=== PATIENT | male | born 2000 | race African-American/Black ===

== ENCOUNTER 2021-04-26 21:31 | Emergency (ER) | payer SELFPAY ==
[2021-04-26 22:13] LABS: Bilirubin Neg (Negative); Blood, Urine 10 (Negative); Clarity Slightly Cloudy (Clear); Glucose, Urine (Dipstick) Normal (Negative); Ketone, Urine 5 mg/dL (Negative); Leukocyte 500 (Negative); Nitrite Negative (Negative); Protein, Urine (Dipstick) 15 mg/dl (Neg-Trace); Specific Gravity, Urine 1.015 (1.002-1.036); Urobilinogen Normal mg/dL (Less than 2)
[2021-04-26 22:22] LABS: RBC/HPF 0-3 HPF (0-3); Squamous Epithelial 0-3 HPF (0-3); WBC/HPF Greater Than 50 HPF (0-3)
[2021-04-26 22:23] LABS: Bacteria/HPF Rare-Few HPF (None Seen)
[2021-04-26] MEDS ORDERED: cefTRIAXone\\ROCEPHIN 500 MG VIAL ONE (23:09)
[2021-04-26] MEDS ORDERED: Lidocaine 1% (PF) 30 ML VIAL ONE (23:09)
[2021-04-27 18:54] LABS: Chlamydia by PCR Not Detected (NotDetected); GC by PCR DETECTED (NotDetected)
== END 2021-04-26 23:25 | disposition home or self-care (01) ==
LOC: CSHERS 21:31
DX: R30.0 Dysuria (principal); R36.9 Urethral discharge, unspecified; F17.290 Nicotine dependence, other tobacco product, uncomplicated
CPT/HCPCS: 81003; 81015; 87491; 87591; 96372; 99283; J0696; J2001

== ENCOUNTER 2021-09-03 12:55 | Emergency (ER) | payer SELFPAY ==
[2021-09-03] MEDS ORDERED: Ketorolac Tromethamine 30 MG/ML VIAL ONE (14:43)
[2021-09-03] MEDS ORDERED: Iopamidol 300 61% 100 ML VIAL FS ONE (14:48)
[2021-09-03 14:58] LABS: Hemoglobin 13.6 g/dL (13.5-17.5); Mean Corpuscular HGB CONC 35.2 g/dL (32.0-36.0); Mean Corpuscular Hemoglobin 31.6 pg (27.0-33.0); Mean Corpuscular Volume 89.8 fl (81.2-95.1); Mean Platelet Volume 10.7 fl (7.4-10.4); Platelet Count 153 10x3/uL (150-450); RBC Distribution Width 13.2 % (11.5-14.5); White Blood Cell (WBC) Count 22.6 10x3/uL (3.5-10.5)
[2021-09-03 15:10] LABS: ALT (SGPT) 17 U/L (8-55); AST (SGOT) 16 U/L (5-34); Albumin 3.9 g/dL (3.5-5.0); Alkaline Phosphatase 50 U/L (40-110); Anion Gap 15 mmol/L (10-20); BUN (Urea Nitrogen) 14 mg/dL (8.9-20.6); Bilirubin, Total 0.7 mg/dL (0.2-1.2); Calc. Creatinine Clearance 0 mL/min (70-130); Calcium 8.8 mg/dL (7.8-10.44); Carbon Dioxide 24 mmol/L (22-29); Chloride 97 mmol/L (98-107); Estimated GFR 79; Globulin 3.2 g/dL (2.4-3.5); Glucose 147 mg/dL (70-105); Potassium 3.6 mmol/L (3.5-5.1); Protein, Total 7.1 g/dL (6.0-8.3); Sodium 132 mmol/L (136-145)
[2021-09-03 15:36] LABS: Band 18 % (5-11); Lymphocytes 6 % (21-51); Monocytes 7 % (0-10)
[2021-09-03 15:37] LABS: Neutrophil 69 % (42-75)
[2021-09-03 15:38] LABS: Dohle Bodies SLIGHT; Platelet Morphology Comment Appears Adequate; Vacuoles SLIGHT
[2021-09-03 15:39] LABS: MDiff Complete? YES; RBC Morphology Normal
[2021-09-03 16:37] LABS: MONO NEGATIVE CONTROL ZONE White (Negative) (White); MONO POSITIVE CONTROL Pink Line (Positive) (PINK/RED); Mononucleosis NEGATIVE (NEGATIVE)
[2021-09-03] MEDS ORDERED: Dexamethasone 10 MG/ML VIAL ONE (17:34)
== END 2021-09-03 17:40 | disposition home or self-care (01) ==
LOC: CSHERS 12:55
DX: J02.9 Acute pharyngitis, unspecified (principal); F17.290 Nicotine dependence, other tobacco product, uncomplicated
CPT/HCPCS: 70491; 80053; 85025; 86308; 87081; 87430; 96374; J1100; J1885; Q9967